=== PATIENT | female | born 1975 | race Caucasian/White ===

== ENCOUNTER 2020-10-05 19:31 | Inpatient (IN) | payer MEDICARE, MEDICAID ==
[~2020-10-05] VITALS: Ht 165.1 cm; Wt 79.4 kg
[2020-10-05 20:37] LABS: BASOPHILS 0.2 % (0-2); EOSINOPHILS 0 % (0-7); HEMATOCRIT 40.4 % (36.0-48.0); HEMOGLOBIN 13.5 g/dL (12-16); IMMATURE GRANULOCYTES 0.2 % (0-5); LYMPHOCYTE ABS# 1.55 10x3/uL (1.18-3.74); MCH 29.7 pg (26.0-34.0); MCHC 33.4 g/dL (31.0-37.0); MEAN PLATELET VOLUME 9.9 fL (7.4-10.4); MONOCYTES 10.7 % (2-11); NEUTROPHIL ABS# 9.91 10x3/uL (1.56-6.13); NEUTROPHILS 76.9 % (40-80); PLATELET COUNT 189 10x3/uL (130-400); RBC 4.54 10x6/uL (4.00-5.40); RDW 13.4 % (11.5-14.5); WBC 12.9 10x3/uL (4.8-10.8)
[2020-10-05 20:42] LABS: ANION GAP 16.2 mmol/L (8-16); CALCIUM 9.1 mg/dL (8.5-10.1); CARBON DIOXIDE 23.8 mmol/L (21.0-32.0)
[2020-10-05 20:56] LABS: ALBUMIN 3.3 g/dL (3.4-5.0); BILIRUBIN - TOTAL 0.43 mg/dL (0.2-1.3); MAGNESIUM - SERUM 1.5 mg/dL (1.8-2.4); PROTEIN - SERUM 8.2 g/dL (6.4-8.2); THYROID STIMULATING HORMONE 1.43 uIU/mL (0.36-3.74)
[2020-10-05 20:57] LABS: HCG URINE NEGATIVE (NEGATIVE)
[2020-10-05 20:57] LABS: C-REACTIVE PROTEIN 9.4 mg/dL (0.0-0.9)
[2020-10-05 21:23] LABS: NITRITE POSITIVE (NEGATIVE)
[2020-10-05 21:24] LABS: BILIRUBIN NEGATIVE (NEGATIVE); KETONE NEGATIVE (NEGATIVE); UROBILINOGEN NORMAL mg/dL (< 2)
[2020-10-05 21:26] LABS: UDS - AMPHET NEGATIVE QUAL (NEGATIVE); UDS - BARB NEGATIVE QUAL (NEGATIVE); UDS - BENZO NEGATIVE QUAL (NEGATIVE); UDS - COCAINE NEGATIVE QUAL (NEGATIVE); UDS - OPIATE NEGATIVE QUAL (NEGATIVE); UDS - PCP NEGATIVE QUAL (NEGATIVE); UDS - THC NEGATIVE QUAL (NEGATIVE)
[2020-10-05 21:42] LABS: WHITE CELLS - URINE >50 HPF (0-4)
[2020-10-05 21:49] LABS: BACTERIA MANY HPF (NONE SEEN)
[2020-10-06 04:00] VITALS: BP 140/68
[2020-10-06 07:34] VITALS: BP 140/77
[2020-10-06 09:28] VITALS: BP 154/88
[2020-10-06 10:15] LABS: ALBUMIN 2.6 g/dL (3.4-5.0); ANION GAP 11.4 mmol/L (8-16); BILIRUBIN - TOTAL 0.47 mg/dL (0.2-1.3); CALCIUM 8.1 mg/dL (8.5-10.1); CARBON DIOXIDE 24.3 mmol/L (21.0-32.0); CREATININE - SERUM 0.9 mg/dL (0.6-1.3); POTASSIUM - SERUM 3.7 mmol/L (3.5-5.1)
[2020-10-06 10:57] LABS: BASOPHILS 0.1 % (0-2); EOSINOPHILS 0 % (0-7); HEMATOCRIT 33.9 % (36.0-48.0); HEMOGLOBIN 11.4 g/dL (12-16); IMMATURE GRANULOCYTES 0.4 % (0-5); LYMPHOCYTE ABS# 1.74 10x3/uL (1.18-3.74); LYMPHOCYTES 10.6 % (15-50); MCH 29.8 pg (26.0-34.0); MCHC 33.6 g/dL (31.0-37.0); MCV 88.7 fL (80.0-100.0); NEUTROPHILS 73.9 % (40-80); PLATELET COUNT 173 10x3/uL (130-400); RBC 3.82 10x6/uL (4.00-5.40); RDW 13.5 % (11.5-14.5)
[2020-10-06 11:03] LABS: WBC 16.5 10x3/uL (4.8-10.8)
[2020-10-06 12:31] VITALS: BP 121/67
[2020-10-06 13:39] VITALS: BMI 29.1
[2020-10-06 14:43] VITALS: Ht 165.1 cm; Wt 79.4 kg
[2020-10-06 16:56] VITALS: BP 147/67
[2020-10-06 20:00] VITALS: BP 118/65
[2020-10-06 21:27] LABS: CARBON DIOXIDE 27.1 mmol/L (21.0-32.0); CREATININE - SERUM 0.9 mg/dL (0.6-1.3); POTASSIUM - SERUM 4.1 mmol/L (3.5-5.1)
[2020-10-07] VITALS: BP 122/68
[2020-10-07 04:00] VITALS: BP 135/66
[2020-10-07 06:38] LABS: BASOPHILS 0.1 % (0-2); EOSINOPHILS 0.2 % (0-7); HEMATOCRIT 31.6 % (36.0-48.0); HEMOGLOBIN 10.4 g/dL (12-16); IMMATURE GRANULOCYTES 0.2 % (0-5); LYMPHOCYTE ABS# 1.68 10x3/uL (1.18-3.74); LYMPHOCYTES 13.9 % (15-50); MCH 29.3 pg (26.0-34.0); MCHC 32.9 g/dL (31.0-37.0); MEAN PLATELET VOLUME 9.8 fL (7.4-10.4); MONOCYTES 12.5 % (2-11); NEUTROPHIL ABS# 8.86 10x3/uL (1.56-6.13); NEUTROPHILS 73.1 % (40-80); PLATELET COUNT 191 10x3/uL (130-400); RBC 3.55 10x6/uL (4.00-5.40); RDW 13.5 % (11.5-14.5)
[2020-10-07 06:39] LABS: WBC 12.1 10x3/uL (4.8-10.8)
[2020-10-07 07:42] LABS: ALBUMIN 2.4 g/dL (3.4-5.0); ALKALINE PHOSPHATASE 76 U/L (30-120); ALT (SGPT) 10 U/L (10-68); BILIRUBIN - TOTAL 0.31 mg/dL (0.2-1.3); CALC OSMOLALITY 272 mosm/kg (275-300); CALCIUM 8.3 mg/dL (8.5-10.1); CARBON DIOXIDE 23.8 mmol/L (21.0-32.0); CHLORIDE - SERUM 99 mmol/L (98-107); CREATININE - SERUM 0.7 mg/dL (0.6-1.3); GLUCOSE 286 mg/dL (74-106); POTASSIUM - SERUM 4.1 mmol/L (3.5-5.1); PROTEIN - SERUM 6.1 g/dL (6.4-8.2); SODIUM 132 mmol/L (136-145); UREA NITROGEN 8 mg/dL (7-18); eGFR NON AFRICAN AMERICAN > 90 mL/min (90-120)
[2020-10-07 07:51] VITALS: BP 124/70
--- NOTE | 2020-10-07 09:00 | NUR ---
ALERT AND ORIENTED AND DENEIS ANY PAIN OR DISCOMFORT. SCD'S INTACT WITH ROLAND CATH PATENT WITH CLEAR SANTOS URINE. IVF INFUSING AT PRESCRIBED RATE WITH NO S/S OF INFECTION/INFILTRATION.TELEMETRY INTACT AND ENCOURAGED TO USE CALL LIGHT FOR ASSSIT.
[2020-10-07 11:05] VITALS: BP 137/84
[2020-10-07 16:00] VITALS: BP 122/78
[2020-10-07 20:00] VITALS: BP 137/85
[2020-10-08] VITALS: BP 146/83
--- NOTE | 2020-10-08 01:04 | NUR ---
ASSESSED AT THE BEGINNING OF THE SHIFT. PT IS ALEART AND ORIENTED, ABLE TO VERBALIZE NEEDS BUT IS A LITTLE CHILD LIKE. SHE CONTINURES TO HAVE A ROLAND CATH AND IS WANTING IT REMOVED. INFORMED THAT WE WOULD GET PREMISSION GRETTA DICKSON IN THE AM. SHE HAS TELEMETRY IN PLACE AT [address]. THERE IS A RT WIRIST SPLINT IN PLACE AND WE HAVE DISCUSSED HER NEED TO HAVE NO FREE WATER.
[2020-10-08 04:00] VITALS: BP 138/75
--- NOTE | 2020-10-08 04:08 | NUR ---
PT PULLED OUT IV AND A NEW ONE WAS PLACED IN WITH A 20 TO THE LEFT A/C. SHORTLY AFTER SHE WAS GIVEN TYLENOL AT HER REQUEST FOR A HEADACHE. AM MED GIVEN EARLY SO TO NOT WAKE HER UP IF SHE FALLS ASLEEP.
--- NOTE | 2020-10-08 05:03 | NUR ---
UPSET AND CRYING TO HAVE ROLAND REMOVED. REMOVED AT HER REQUEST AND GIVEN CLEAN UP SUPPLIES SINCE SHE IS IN HER PERIOD.
[2020-10-08 06:56] LABS: BASOPHILS 0.1 % (0-2); EOSINOPHILS 0.8 % (0-7); HEMATOCRIT 32.6 % (36.0-48.0); HEMOGLOBIN 10.9 g/dL (12-16); IMMATURE GRANULOCYTES 0.3 % (0-5); LYMPHOCYTE ABS# 1.33 10x3/uL (1.18-3.74); LYMPHOCYTES 17.7 % (15-50); MCH 29.5 pg (26.0-34.0); MCHC 33.4 g/dL (31.0-37.0); MCV 88.1 fL (80.0-100.0); MEAN PLATELET VOLUME 9.9 fL (7.4-10.4); MONOCYTES 5.3 % (2-11); NEUTROPHIL ABS# 5.68 10x3/uL (1.56-6.13); NEUTROPHILS 75.8 % (40-80); PLATELET COUNT 220 10x3/uL (130-400); RDW 13.5 % (11.5-14.5)
[2020-10-08 07:04] LABS: WBC 7.5 10x3/uL (4.8-10.8)
[2020-10-08 07:42] LABS: ALBUMIN 2.6 g/dL (3.4-5.0); ALKALINE PHOSPHATASE 85 U/L (30-120); BILIRUBIN - TOTAL 0.14 mg/dL (0.2-1.3); CALC OSMOLALITY 273 mosm/kg (275-300); CALCIUM 8.7 mg/dL (8.5-10.1); CARBON DIOXIDE 23.9 mmol/L (21.0-32.0); CHLORIDE - SERUM 99 mmol/L (98-107); CREATININE - SERUM 0.6 mg/dL (0.6-1.3); GLUCOSE 250 mg/dL (74-106); POTASSIUM - SERUM 3.8 mmol/L (3.5-5.1); PROTEIN - SERUM 6.7 g/dL (6.4-8.2); SODIUM 134 mmol/L (136-145); UREA NITROGEN 7 mg/dL (7-18); eGFR NON AFRICAN AMERICAN > 90 mL/min (90-120)
[2020-10-08 07:43] LABS: ALT (SGPT) 15 U/L (10-68)
[2020-10-08 07:44] VITALS: BP 155/91
--- NOTE | 2020-10-08 09:00 | NUR ---
ALERT AND ORIENTED X4. DENIES ANY ABDOMINAL PAIN OR DISCOMFORT WITH NONTENDER ON PALPATION WITH BOWEL SOUNDS NOTED X4. NO DYSURIA NOTED. UP ADLIB AND ENCOURAGED TO USE CALL LIGHT FOR ASSSIT.
[2020-10-08 11:29] VITALS: BP 152/90
[2020-10-08 16:10] VITALS: BP 163/97
--- NOTE | 2020-10-08 20:00 | NUR ---
Assumed care of pt after rounds/report. Pt is A&OX4 and verbalizes wants/needs clearly without difficulty or hesitation. Denies pain/discomfort. Tele remains in place and pt sitting on bed watching TV.
[2020-10-08 21:08] VITALS: BP 157/92
[2020-10-09] VITALS (7 sets, daily range): BP systolic 140–155; BP diastolic 88–96
[2020-10-09 06:15] LABS: BASOPHILS 0.3 % (0-2); EOSINOPHILS 1.2 % (0-7); HEMATOCRIT 33.3 % (36.0-48.0); HEMOGLOBIN 10.9 g/dL (12-16); IMMATURE GRANULOCYTES 0.4 % (0-5); LYMPHOCYTE ABS# 1.65 10x3/uL (1.18-3.74); LYMPHOCYTES 24.2 % (15-50); MCH 29.8 pg (26.0-34.0); MCHC 32.7 g/dL (31.0-37.0); MEAN PLATELET VOLUME 9.3 fL (7.4-10.4); MONOCYTES 7.6 % (2-11); NEUTROPHIL ABS# 4.53 10x3/uL (1.56-6.13); NEUTROPHILS 66.3 % (40-80); PLATELET COUNT 228 10x3/uL (130-400); RBC 3.66 10x6/uL (4.00-5.40); RDW 13.6 % (11.5-14.5); WBC 6.8 10x3/uL (4.8-10.8)
[2020-10-09 06:34] LABS: ALBUMIN 2.6 g/dL (3.4-5.0); ALKALINE PHOSPHATASE 77 U/L (30-120); BILIRUBIN - TOTAL 0.17 mg/dL (0.2-1.3); CALCIUM 8.5 mg/dL (8.5-10.1); CHLORIDE - SERUM 99 mmol/L (98-107); CREATININE - SERUM 0.7 mg/dL (0.6-1.3); GLUCOSE 203 mg/dL (74-106); POTASSIUM - SERUM 3.5 mmol/L (3.5-5.1); PROTEIN - SERUM 6.4 g/dL (6.4-8.2); SODIUM 136 mmol/L (136-145); eGFR NON AFRICAN AMERICAN > 90 mL/min (90-120)
[2020-10-09 06:35] LABS: ALT (SGPT) 20 U/L (10-68); CALC OSMOLALITY 276 mosm/kg (275-300); UREA NITROGEN 10 mg/dL (7-18)
--- NOTE | 2020-10-09 20:01 | NUR ---
Assumed care of pt after report/rounds. Pt denies pain/discomfort. Alert and oriented X4 and verbalizes wants/needs clearly, appropriately and without hesitation. Pt sitting on bed watching TV at time of assessment and asymptomatic for hypo/hyperglycemia.
[2020-10-10] VITALS (8 sets, daily range): BP systolic 127–172; BP diastolic 69–99
[2020-10-10 06:28] LABS: BASOPHILS 0.3 % (0-2); EOSINOPHILS 1.1 % (0-7); HEMATOCRIT 35.1 % (36.0-48.0); HEMOGLOBIN 11.5 g/dL (12-16); LYMPHOCYTE ABS# 1.65 10x3/uL (1.18-3.74); LYMPHOCYTES 23.1 % (15-50); MCH 29.2 pg (26.0-34.0); MCHC 32.8 g/dL (31.0-37.0); MCV 89.1 fL (80.0-100.0); MEAN PLATELET VOLUME 9.3 fL (7.4-10.4); MONOCYTES 6.6 % (2-11); NEUTROPHIL ABS# 4.84 10x3/uL (1.56-6.13); NEUTROPHILS 67.9 % (40-80); RBC 3.94 10x6/uL (4.00-5.40); RDW 13.3 % (11.5-14.5); WBC 7.1 10x3/uL (4.8-10.8)
[2020-10-10 06:34] LABS: PLATELET COUNT 317 10x3/uL (130-400)
[2020-10-10 06:50] LABS: ALBUMIN 2.7 g/dL (3.4-5.0); ALKALINE PHOSPHATASE 70 U/L (30-120); BILIRUBIN - TOTAL 0.14 mg/dL (0.2-1.3); CALC OSMOLALITY 270 mosm/kg (275-300); CALCIUM 8.8 mg/dL (8.5-10.1); CARBON DIOXIDE 28.3 mmol/L (21.0-32.0); CHLORIDE - SERUM 98 mmol/L (98-107); CREATININE - SERUM 0.7 mg/dL (0.6-1.3); GLUCOSE 177 mg/dL (74-106); PROTEIN - SERUM 7.4 g/dL (6.4-8.2); SODIUM 134 mmol/L (136-145); UREA NITROGEN 9 mg/dL (7-18); eGFR NON AFRICAN AMERICAN > 90 mL/min (90-120)
[2020-10-10 06:55] LABS: ALT (SGPT) 29 U/L (10-68)
--- NOTE | 2020-10-10 09:00 | NUR ---
ALERT AND OREINTED X4. ABDOMEN DOSFT WITH BOWEL SOUNDS NOTED X4 W/O ABDOMINAL TENDERNESS ON PALPATION. DENIES ANY DYSRURIA WITH PATINET UP ADLIB TO BATHROOM. STATES FEELS BETTER. ENCOURAGED TO USE CALL LIGHT FOR ASSSIT. IVF INFUSING AT PRESCRIBED RATE TO LEFT A/C.
--- NOTE | 2020-10-10 20:22 | NUR ---
Assumed care of pt after report/rounds. Pt in bed resting and remains A&O X4. Reiterated use of insulin and importance of maintaining appropriate BGs when home to facilitate health. Pt did verbalize understanding. Pt is watching TV at this time.
[2020-10-11 06:49] LABS: BASOPHILS 0.3 % (0-2); EOSINOPHILS 1.3 % (0-7); HEMATOCRIT 33.6 % (36.0-48.0); IMMATURE GRANULOCYTES 1.5 % (0-5); LYMPHOCYTE ABS# 1.61 10x3/uL (1.18-3.74); LYMPHOCYTES 23.9 % (15-50); MCHC 32.7 g/dL (31.0-37.0); MCV 88.7 fL (80.0-100.0); MEAN PLATELET VOLUME 9.2 fL (7.4-10.4); MONOCYTES 7.9 % (2-11); NEUTROPHIL ABS# 4.38 10x3/uL (1.56-6.13); NEUTROPHILS 65.1 % (40-80); PLATELET COUNT 312 10x3/uL (130-400); RBC 3.79 10x6/uL (4.00-5.40); RDW 13.3 % (11.5-14.5); WBC 6.7 10x3/uL (4.8-10.8)
[2020-10-11 06:53] LABS: ALBUMIN 2.8 g/dL (3.4-5.0); ALKALINE PHOSPHATASE 68 U/L (30-120); BILIRUBIN - TOTAL 0.13 mg/dL (0.2-1.3); CALC OSMOLALITY 269 mosm/kg (275-300); CALCIUM 8.7 mg/dL (8.5-10.1); CARBON DIOXIDE 27.5 mmol/L (21.0-32.0); CHLORIDE - SERUM 99 mmol/L (98-107); CREATININE - SERUM 0.6 mg/dL (0.6-1.3); GLUCOSE 155 mg/dL (74-106); MAGNESIUM - SERUM 1.7 mg/dL (1.8-2.4); PROTEIN - SERUM 6.5 g/dL (6.4-8.2); SODIUM 134 mmol/L (136-145); UREA NITROGEN 9 mg/dL (7-18); eGFR NON AFRICAN AMERICAN > 90 mL/min (90-120)
[2020-10-11 06:55] LABS: ALT (SGPT) 38 U/L (10-68); POTASSIUM - SERUM 3.5 mmol/L (3.5-5.1)
--- NOTE | 2020-10-11 07:34 | NUR ---
RECIEVED BEDSIDE REPORT. PATIENT IN BED ASLEEP, AROUSES TO VOICE. DENIES NEEDS AT THIS TIME. BED LOW POSITION, CALL LIGHT IN REACH. FREE FROM SIGNS OF DISTRESS. WILL CONTINUE TO MONITOR.
--- NOTE | 2020-10-11 08:00 | NUR ---
IV WENT BAD IN LEFT AC. TRIED X2 ATTEMPTS. GOT A RIGHT FOREARM 22 GAUGE. IV FLUIDS RESUMED.
[2020-10-11 09:04] VITALS: BP 125/80
[2020-10-11 12:21] VITALS: BP 184/83
--- NOTE | 2020-10-11 12:35 | MORECARE ---
CASE MANAGEMENT DISCHARGE SUMMARY PATIENT: AYDEE RANGEL UNIT: [id number] ADM DATE: 10/05/20 AGE: 45 : 79 SEX: F ROOM/BED: D.2204 AUTHOR: NOAH COTA PHYSICIAN: REFERRING PHYSICIAN: MIGUEL LARSEN MD DATE OF SERVICE: 10/11/20 Discharge Plan Patient Name: AYDEE RANGEL [facility] [facility] 1975 Planned Disposition: Home or Self Care Anticipated Discharge Date: Discharge Date: Expected LOS: Initial Reviewer: [email or web address] Initial Review Date: 10/05/2020 Generated: 10/11/20 1:35 pm DCPIA - Discharge Planning Initial Assessment Updated by [email or web address]: Alma Delia Chaudhary on 10/11/20 12:31 pm * Is the patient Alert and Oriented? Yes * How many steps to enter\exit or inside your home? * PCP LONNIE FRANK * Pharmacy [facility] * Preadmission Environment Home Alone * ADLs Independent * Equipment Glucometer * List name and contact numbers for known caregivers / representatives who currently or will assist patient after discharge: FAMILY ( NO NUMBER GIVEN ) * Verbal permission to speak to the caregivers and representatives has been obtained from the patient. Yes * Community resources currently utilized None * Additional services required to return to the preadmission environment? Yes * Can the patient safely return to the preadmission environment? Yes * Has this patient been hospitalized within the prior 30 days at any hospital? No Patient Name: AYDEE RANGEL Page [id number] at 1235 All edits/amendments must be made on the electronic document DICTATION DATE: 10/11/20 1235 GRAINING OPERATOR: MAXIMINO 10/11/20 1235 RPT#: [id number] DC DATE: STATUS: ADM IN [facility] [address] [place] [address] END OF REPORT
--- NOTE | 2020-10-11 12:42 | MORECARE ---
CASE MANAGEMENT DISCHARGE SUMMARY PATIENT: AYDEE RANGEL UNIT: [id number] ADM DATE: 10/05/20 AGE: 45 : 79 SEX: F ROOM/BED: D.2204 AUTHOR: NOAH COTA PHYSICIAN: REFERRING PHYSICIAN: MIGUEL LARSEN MD DATE OF SERVICE: 10/11/20 Discharge Plan Patient Name: AYDEE RANGEL Facility: [facility]:[place] : 1975 Planned Disposition: Home or Self Care Anticipated Discharge Date: Discharge Date: Expected LOS: Initial Reviewer: [email or web address] Initial Review Date: 10/05/2020 Generated: 10/11/20 1:41 pm Comments DCP- Discharge Planning Updated by [email or web address]: Alma Delia Chaudhary on 10/11/20 11:[address] Patient Name: AYDEE RANGEL Admission Status: ER Accout number: [id number] Admission Date: 10-05-2020 : 1975 Admission Diagnosis:SEPSIS, UNSPECIFIED ORGANISM Attending: MARCELLA Current LOS: 6 Anticipated DC Date: Planned Disposition: Home or Self Care Primary Insurance: [facility] MEDICARE SOLUTIONS Discharge Planning Comments: CM met with patient to complete initial dc planning assessment. CM educated patient on the CM role and verbal consent given by patient to complete assessment. Patient lives at home by herself where she is independent with her care. At discharge patient plans to return home and feels this is a safe discharge. CM discussed availability of home health, rehab services, and medical equipment. She stated that she has a glucometer at home and knows how to use it. She does not need or use any dme. She stated that she does not have any way to get home her mom wanted us to get a taxi to get her to the [facility] [place] the [place] of [facility]. I could not get a hold of a Taxi. I did call [employer] to see if she had transportation benefits and she does. I have set up [employer] to take her home. CONf # [id number]. Patient also stated that she has 20. 00 for medications. Patient denied known discharge needs at this time. CM will continue to follow and will assist as needed with dc plans/needs Animal Assisted Therapist: Alma Delia Chaudhary DCPIA - Discharge Planning Initial Assessment Updated by [email or web address]: Alma Delia Chaudhary on 10/11/20 12:31 pm * Is the patient Alert and Oriented? Yes * How many steps to enter\exit or inside your home? * PCP LONINE FRANK * Pharmacy [facility] * Preadmission Environment Home Alone * ADLs Independent * Equipment Glucometer * List name and contact numbers for known caregivers / representatives who currently or will assist patient after discharge: FAMILY ( NO NUMBER GIVEN ) * Verbal permission to speak to the caregivers and representatives has been obtained from the patient. Yes * Community resources currently utilized None * Additional services required to return to the preadmission environment? Yes * Can the patient safely return to the preadmission environment? Yes * Has this patient been hospitalized within the prior 30 days at any hospital? No Last DP export: 10/11/20 11:35 am Patient Name: AYDEE RANGEL Page [id number] at 1242 All edits/amendments must be made on the electronic document DICTATION DATE: 10/11/20 1241 METALLIC YARN SLITTING MACHINE OPERATOR: MAXIMINO 10/11/20 1241 RPT#: [id number] DC DATE: STATUS: ADM IN [facility] [address] [place] [address] END OF REPORT
--- NOTE | 2020-10-11 13:17 | MORECARE ---
CASE MANAGEMENT DISCHARGE SUMMARY PATIENT: AYDEE RANGEL UNIT: [id number] ADM DATE: 10/05/20 AGE: 45 : 79 SEX: F ROOM/BED: D.2204 AUTHOR: BEATADOC PHYSICIAN: REFERRING PHYSICIAN: MIGUEL LARSEN MD DATE OF SERVICE: 10/11/20 Discharge Plan Patient Name: AYDEE RANGEL Facility: [facility]:[place] : 1975 Planned Disposition: Home or Self Care Anticipated Discharge Date: Discharge Date: Expected LOS: Initial Reviewer: [email or web address] Initial Review Date: 10/05/2020 Generated: 10/11/20 2:16 pm Comments DCP- Discharge Planning Updated by [email or web address]: Alma Delia Chaudhary on 10/11/20 12:[address] imm served and explained cm to follow and assist as needed DCP- Discharge Planning Updated by [email or web address]: Alma Delia Chaudhary on 10/11/20 11:[address] Patient Name: AYDEE RANGEL Admission Status: ER Accout number: [id number] Admission Date: 10-05-2020 : 1975 Admission Diagnosis:SEPSIS, UNSPECIFIED ORGANISM Attending: MARCELLA Current LOS: 6 Anticipated DC Date: Planned Disposition: Home or Self Care Primary Insurance: [facility] MEDICARE SOLUTIONS Discharge Planning Comments: CM met with patient to complete initial dc planning assessment. CM educated patient on the CM role and verbal consent given by patient to complete assessment. Patient lives at home by herself where she is independent with her care. At discharge patient plans to return home and feels this is a safe discharge. CM discussed availability of home health, rehab services, and medical equipment. She stated that she has a glucometer at home and knows how to use it. She does not need or use any dme. She stated that she does not have any way to get home her mom wanted us to get a taxi to get her to the [facility] [place] [facility]. I could not get a hold of a Taxi. I did call [facility] to see if she had transportation benefits and she does. I have set up [employer] to take her home. CONf # [id number]. Patient also stated that she has 20. 00 for medications. Patient denied known discharge needs at this time. CM will continue to follow and will assist as needed with dc plans/needs Roll Carrier: Alma Delia Chaudhary DCPIA - Discharge Planning Initial Assessment Updated by [email or web address]: Alma Delia Chaudhary on 10/11/20 12:31 pm * Is the patient Alert and Oriented? Yes * How many steps to enter\exit or inside your home? * PCP LONNIE FRANK * Pharmacy [facility] * Preadmission Environment Home Alone * ADLs Independent * Equipment Glucometer * List name and contact numbers for known caregivers / representatives who currently or will assist patient after discharge: FAMILY ( NO NUMBER GIVEN ) * Verbal permission to speak to the caregivers and representatives has been obtained from the patient. Yes * Community resources currently utilized None * Additional services required to return to the preadmission environment? Yes * Can the patient safely return to the preadmission environment? Yes * Has this patient been hospitalized within the prior 30 days at any hospital? No Coverage Notice Reviewer: [id number] - Alma Delia Chaudhary Notice Issued Date-Time: 10/11/2020 12:10 Notice Type: IM Discharge Notice Notice Delivered To: Patient Relationship to Patient: Kitchen Food Assembler Name: Delivery Method: HAND - Hand Delivered Genevieve Days: Prior Verbal Notification: Recipient Understood Notice: Yes Recipient Signature: Yes Med Rec Note Co-signed by Attending: Coverage Notice Comment: Last DP export: 10/11/20 11:42 am Patient Name: AYDEE RANGEL Page [id number] at 1317 All edits/amendments must be made on the electronic document DICTATION DATE: 10/11/20 1316 INFERTILITY NURSE: MAXIMINO 10/11/20 1316 RPT#: [id number] DC DATE: STATUS: ADM IN [facility] [address] [place] [address] END OF REPORT
[2020-10-11] MEDS ORDERED: LEVAQUIN750 MG PO (13:22)
[2020-10-11] MEDS ORDERED: GLUCOPHAGE500 MG PO (13:31)
--- NOTE | 2020-10-11 14:02 | NUR ---
DISCHARGE PAPERS COMPLETE. NO FURTHER QUESTIONS. IV REMOVED, CATH TIP INTACT. BELONGINGS GATHERED. LEFT UNIT VIA WHEELCHAIR TO HOME AT THIS TIME.
--- NOTE | 2020-10-12 10:22 | MORECARE ---
CASE MANAGEMENT DISCHARGE SUMMARY PATIENT: AYDEE RANGEL UNIT: [id number] ADM DATE: 10/05/20 AGE: 45 : 79 SEX: F ROOM/BED: D.2204 AUTHOR: BEATADOC PHYSICIAN: REFERRING PHYSICIAN: MIGUEL LARSEN MD DATE OF SERVICE: 10/12/20 Discharge Plan Patient Name: AYDEE RANGEL Facility: [facility]:[place] : 1975 Planned Disposition: Home or Self Care Anticipated Discharge Date: Discharge Date: 10/11/2020 Expected LOS: Initial Reviewer: [email or web address] Initial Review Date: 10/05/2020 Generated: 10/12/20 11:21 am Comments DCP- Discharge Planning Updated by [email or web address]: Alma Delia Chaudhary on 10/11/20 12:[address] imm served and explained cm to follow and assist as needed DCP- Discharge Planning Updated by [email or web address]: Alma Delia Chaudhary on 10/11/20 11:[address] Patient Name: AYDEE RANGEL Admission Status: ER Accout number: [id number] Admission Date: 10-05-2020 : 1975 Admission Diagnosis:SEPSIS, UNSPECIFIED ORGANISM Attending: MARCELLA Current LOS: 6 Anticipated DC Date: Planned Disposition: Home or Self Care Primary Insurance: [facility] MEDICARE SOLUTIONS Discharge Planning Comments: CM met with patient to complete initial dc planning assessment. CM educated patient on the CM role and verbal consent given by patient to complete assessment. Patient lives at home by herself where she is independent with her care. At discharge patient plans to return home and feels this is a safe discharge. CM discussed availability of home health, rehab services, and medical equipment. She stated that she has a glucometer at home and knows how to use it. She does not need or use any dme. She stated that she does not have any way to get home her mom wanted us to get a taxi to get her to the [facility] [place] [facility]. I could not get a hold of a Taxi. I did call [facility] to see if she had transportation benefits and she does. I have set up [employer] to take her home. CONf # [id number]. Patient also stated that she has 20. 00 for medications. Patient denied known discharge needs at this time. CM will continue to follow and will assist as needed with dc plans/needs Senior Reactor Operator: Alma Delia Chaudhary DCPIA - Discharge Planning Initial Assessment Updated by [email or web address]: Alma Delia Chaudhary on 10/11/20 12:31 pm * Is the patient Alert and Oriented? Yes * How many steps to enter\exit or inside your home? * PCP LONNIE FRANK * Pharmacy [facility] * Preadmission Environment Home Alone * ADLs Independent * Equipment Glucometer * List name and contact numbers for known caregivers / representatives who currently or will assist patient after discharge: FAMILY ( NO NUMBER GIVEN ) * Verbal permission to speak to the caregivers and representatives has been obtained from the patient. Yes * Community resources currently utilized None * Additional services required to return to the preadmission environment? Yes * Can the patient safely return to the preadmission environment? Yes * Has this patient been hospitalized within the prior 30 days at any hospital? No Coverage Notice Reviewer: [id number] - Alma Delia Chaudhary Notice Issued Date-Time: 10/11/2020 12:10 Notice Type: IM Discharge Notice Notice Delivered To: Patient Relationship to Patient: Cigar Binder Name: Delivery Method: HAND - Hand Delivered Genevieve Days: Prior Verbal Notification: Recipient Understood Notice: Yes Recipient Signature: Yes Med Rec Note Co-signed by Attending: Coverage Notice Comment: Last DP export: 10/11/20 12:17 pm Patient Name: AYDEE RANGEL Page [id number] at 1022 All edits/amendments must be made on the electronic document DICTATION DATE: 10/12/20 1022 FORESTRY AIDE: MAXIMINO 10/12/20 1022 RPT#: [id number] DC DATE:10/11/20 STATUS: DIS IN [facility] [address] [place] [address] END OF REPORT
== END 2020-10-11 14:03 | disposition home or self-care (01) | DRG 872 ==
LOC: D.ER 19:31 → D.MS 22:12
PROVIDERS: Family Medicine; Internal Medicine; ADMIT Family Medicine; ATTEND Family Medicine
DX: A41.9 Sepsis, unspecified organism (principal); N39.0 Urinary tract infection, site not specified; E87.1 Hypo-osmolality and hyponatremia; E87.2 Acidosis; N10 Acute pyelonephritis; N13.30 Unspecified hydronephrosis; F41.8 Other specified anxiety disorders; E11.65 Type 2 diabetes mellitus with hyperglycemia; Z91.14 Patient's other noncompliance with medication regimen; R16.0 Hepatomegaly, not elsewhere classified